=== PATIENT | female | born 1960 | race Caucasian/White ===

== ENCOUNTER 2016-12-29 15:23 | Emergency (ER) | payer OTHER ==
[2016-12-29 15:56] VITALS: BMI 37.2
[2016-12-29] MEDS ORDERED: SODIUM CHLORIDE 0.9% 1000 ML INFUS.BAG IV ONE (15:58)
[2016-12-29] MEDS ORDERED: ONDANSETRON 4 MG/2 ML VIAL IVPB ONE (16:00)
[2016-12-29] MEDS ORDERED: morphine CARPU-JECT 2 MG/1 ML DISP.SYRIN IVPUSH ONE (16:00)
[2016-12-29 16:14] LABS: URINE APPEARANCE CLEAR; URINE BILIRUBIN NEGATIVE (NEGATIVE); URINE COLOR YELLOW; URINE GLUCOSE (UA) NEGATIVE (NEGATIVE); URINE KETONE NEGATIVE (NEGATIVE); URINE NITRITE NEGATIVE (NEGATIVE); URINE PROTEIN NEGATIVE (NEGATIVE); URINE UROBILINOGEN NEGATIVE E.U./dl (0.2-1.0)
[2016-12-29] MEDS ORDERED: SODIUM CHLORIDE 1,000 ML IV SCH (16:15)
[2016-12-29 16:20] LABS: BASOPHIL 0.7 % (0-2.0); EOSINOPHIL 2.3 % (0-4.5); MEAN CELL VOLUME 87.8 fl (80-96); MEAN PLT VOLUME 8.9 fl (7.5-11.1); NEUTROPHILS 69.4 % (42.8-82.8); PLATELET COUNT 246 K/MM3 (134-434); RDW 13.9 % (11.6-15.6); WHITE BLOOD COUNT 8.5 K/mm3 (4.0-10.0)
[2016-12-29] MEDS ORDERED: morphine CARPU-JECT 2 MG/1 ML DISP.SYRIN ONE (16:21)
--- NOTE | 2016-12-29 16:21 | PDOC ---
History of Present Illness - General Chief Complaint: Pain Stated Complaint: STOMACH PAIN Time Seen by Provider: 12/29/16 15:40 History Source: Patient Exam Limitations: No Limitations - History of Present Illness Travel History: No Initial Comments: 12/29/16 15:36 Patient came for evaluation of acute onset of severe upper abdominal pain starting Friday. States middle of the day had significant cramping that she felt may be some abdominal gas. Had 4 watery mildly explosive stools no foul smell, no bright red blood, or no black tarry to them. Denies fever, denies nauseousness or vomiting at that time but pain was significant as worse to her right flank but now has since radiated around to the abdomen and epigastrium. It is spasmodic and cramping, but is worsening to now with some nausea since and chills. Has been anorexic since Friday, he denies any recent tainted food ingestion, returned from [place] last week but states has been well and they do not feel had any exposure to any infectious disease. History of diverticulitis however had a cholecystectomy a few years ago, and the suffered from gastric reflux and takes Protonix for same Timing/Duration: reports: constant, getting worse Quality: reports: moderate, severe, cramping, stabbing Abdominal Pain Onset Location: reports: RUQ, epigastric Pain Radiation: reports: flank (right) Activities at Onset: reports: none Treatment Prior to Arrive: improves with: antacids Alleviating Factors: improves with: None, Belching Past History - Travel Traveled outside of the country in the last 30 days: No Close contact w/someone who was outside of country & ill: No - Past Medical History Allergies/Adverse Reactions: Allergies Allergy/AdvReac Type Severity Reaction Status Date / Time No Known Allergies Allergy Verified 12/29/16 15:24 Home Medications: Ambulatory Orders Amlodipine Besylate [Norvasc -] 5 mg PO HS 09/02/14 Carisoprodol [Soma -] 1 tab PO HS 09/02/14 Pantoprazole Sodium [Protonix -] 40 mg PO DAILY #30 tablet.ec 09/09/14 Acetazolamide [Diamox -] 125 mg PO ASDIR 10/10/14 Bupropion HCl [Wellbutrin -] 150 mg PO BID 10/10/14 Anemia: No Asthma: No Cancer: No Cardiac Disorders: No CVA: No COPD: No CHF: No Dementia: No Diabetes: No GI Disorders: Yes (ENTERITIS) Disorders: No HTN: Yes Hypercholesterolemia: No Liver Disease: No Seizures: No Thyroid Disease: No - Surgical History Abdominal Surgery: No Appendectomy: No Cardiac Surgery: No Cholecystectomy: Yes (2010) Lung Surgery: No Neurologic Surgery: No Orthopedic Surgery: No - Psycho/Social/Smoking Cessation Hx Anxiety: No Suicidal Ideation: No Smoking History: Current every day smoker Have you smoked in the past 12 months: Yes Number of Cigarettes Smoked Daily: 20 If you are a former smoker, when did you quit?: 2004 Information on smoking cessation initiated: Yes 'Breaking Loose' booklet given: 12/29/16 Hx Alcohol Use: No Drug/Substance Use Hx: No Substance Use Type: Alcohol Hx Substance Use Treatment: No Abd/GI Specific PMHX - Complaint Specific PMHX Diverticulitis: No Gall Bladder Disease: Yes (cholecystectomy) GERD: Yes (protonix) Hepatitis: No Irritable Bowel Synd (IBS): No Pancreatitis: No Review of Systems - Review of Systems Able to Perform ROS?: Yes Is the patient limited [place] proficient: Yes Constitutional: Yes: Symptoms Reported, See HPI, Chills, Fever, Malaise, Weakness HEENTM: Yes: See HPI. No: Symptoms Reported, Nose Pain, Nose Congestion Respiratory: Yes: See HPI, Cough. No: Symptoms reported ABD/GI: Yes: Symptoms Reported, See HPI, Diarrhea, Nausea, Poor Appetite, Vomiting, Abdominal cramping. No: Rectal Bleeding, Tarry Stools : Yes: See HPI. No: Symptoms Reported, Burning, Dysuria, Discharge Musculoskeletal: Yes: Symptoms Reported, Back Pain Integumentary: Yes: Symptoms Reported Neurological: Yes: See HPI. No: Symptoms reported All Other Systems: Reviewed and Negative *Physical Exam - Vital Signs Last Vital Signs Temp Pulse Resp BP Pulse Ox 98.6 F 95 H 18 119/82 100 12/29/16 15:25 12/29/16 15:25 12/29/16 15:25 12/29/16 15:25 12/29/16 15:25 - Physical Exam General Appearance: Yes: Nourished, Appropriately Dressed, Apparent Distress HEENT: positive: CHARLES, Normal ENT Inspection, TMs Normal, Pharynx Normal Neck: positive: Supple. negative: Lymphadenopathy (R), Lymphadenopathy (L) Respiratory/Chest: positive: Lungs Clear, Normal Breath Sounds Cardiovascular: positive: Regular Rhythm Gastrointestinal/Abdominal: positive: Tender, Distended, Guarding (some mild guarding primarily in the upper quadrants and epigastrium, difficult to evaluate due to abd pain) Musculoskeletal: positive: Normal Inspection. negative: CVA Tenderness, Vertebral Tenderness Extremity: positive: Normal Capillary Refill, Normal Inspection, Normal Range of Motion. negative: Pedal Edema Integumentary: positive: Dry, Warm, Pale Neurologic: positive: standpipe tender II-XII NML intact, Fully Oriented, Alert, Normal Mood/ Affect, Normal Response, Motor Strength 12/06 ED Treatment Course - LABORATORY CBC & Chemistry Diagram: 12/29/16 16:10 12/29/16 16:10 - RADIOLOGY Radiology Studies Ordered: Category Date Time Status ABDOMEN & PELVIS CT W/WO CONTR [CT] Stat CT Scan 12/29/16 15:54 Ordered ABDOMEN FLAT & UPRIGHT [RAD] Stat Radiology 12/29/16 16:07 Ordered CHEST PA & LAT [RAD] Stat Radiology 12/29/16 16:07 Ordered - Medications Given in the ED: ED Medications Discontinued Medications Generic Name Dose Route Start Last Admin Trade Name Freq PRN Reason Stop Dose Admin Sodium Chloride 500 ml 12/29/16 15:58 12/29/16 16:15 Normal Saline - IV 12/29/16 15:59 500 ml ONCE ONE Administration Progress Note - Progress Note Progress Note: Acute onset of severe abdominal pain 3 days. We'll obtain labs, flat and upright to rule out free air, and have start oral contrast to obtain abdomen and pelvis. Providing Zofran and morphine for pain relief. IV fluids. Medical Decision Making - Medical Decision Making 12/29/16 18:47 reviewed labs with patient , c/o cont pain and will medicate with additional Morphine, TO CT scan now 12/29/16 19:00 12/29/16 19:02 to TO GIVEN TO BERNADINE Espinosa *DC/Admit/Observation/Transfer Diagnosis at time of Disposition: Abdominal pain Qualifiers: Abdominal location: right upper quadrant Qualified Code(s): R10.11 - Right upper quadrant pain - Referrals Referrals: Waldo Alexis MD [Primary Care Provider] -
[2016-12-29] MEDS ORDERED: ONDANSETRON 4 MG/2 ML VIAL ONE (16:22)
[2016-12-29 16:28] LABS: URINE BLOOD 3+ (NEGATIVE); URINE LEUK ESTERASE TRACE (NEGATIVE); URINE MUCUS RARE; URINE RBC 24 /hpf (0-3); URINE WBC 6 /hpf (3-5)
[2016-12-29 16:53] LABS: ALBUMIN 3.8 g/dl (3.4-5.0); ALK PHOS 99 U/L (45-117); ANION GAP 13 (8-16); BILIRUBIN,TOTAL 0.4 mg/dL (0.2-1.0); CALCIUM 9.1 mg/dL (8.5-10.1); CO2 23 mmol/L (21-32); COCKROFT - GAULT 107.4485; CREATININE 0.9 mg/dL (0.55-1.02); GLUCOSE,RANDOM 104 mg/dL (74-106); SGOT/AST 8 U/L (15-37); SGPT/ALT 21 U/L (12-78); TOT PROT 7.1 g/dl (6.4-8.2)
[2016-12-29] MEDS ORDERED: morphine CARPU-JECT 4 MG/1 ML DISP.SYRIN IVPUSH ONE (18:41)
[2016-12-29] MEDS ORDERED: morphine CARPU-JECT 4 MG/1 ML DISP.SYRIN ONE (18:42)
--- NOTE | 2016-12-29 21:41 | PDOC ---
*Physical Exam - Vital Signs Last Vital Signs Temp Pulse Resp BP Pulse Ox 98.6 F 64 17 123/66 96 12/29/16 15:25 12/29/16 20:28 12/29/16 20:28 12/29/16 20:28 12/29/16 20:28 ED Treatment Course - LABORATORY CBC & Chemistry Diagram: 12/29/16 16:10 12/29/16 16:10 - ADDITIONAL ORDERS Additional order review: Laboratory Results 12/29/16 12/29/16 16:10 16:02 Sodium 143 Potassium 3.9 Chloride 107 Carbon Dioxide 23 Anion Gap 13 BUN 12 D Creatinine 0.9 Creat Clearance w eGFR > 60 Random Glucose 104 Calcium 9.1 Total Bilirubin 0.4 AST 8 L ALT 21 Alkaline Phosphatase 99 D Total Protein 7.1 Albumin 3.8 Lipase 86 Urine Color Yellow Urine Appearance Clear Urine pH 5.0 Ur Specific [place] 1.015 Urine Protein Negative Urine Glucose (UA) Negative Urine Ketones Negative Urine Blood 3+ H Urine Nitrite Negative Urine Bilirubin Negative Urine Urobilinogen Negative Ur Leukocyte Esterase Trace H Urine RBC 24 Urine WBC 6 Ur Epithelial Cells Moderate Urine Mucus Rare 12/29/16 16:10 RBC 5.09 MCV 87.8 MCHC 33.0 RDW 13.9 MPV 8.9 Neutrophils % 69.4 Lymphocytes % 22.4 Monocytes % 5.2 Eosinophils % 2.3 Basophils % 0.7 - RADIOLOGY Radiology Studies Ordered: Category Date Time Status ABDOMEN & PELVIS CT WITH CONTR [CT] Stat CT Scan 12/29/16 19:33 Taken - Medications Given in the ED: ED Medications Discontinued Medications Generic Name Dose Route Start Last Admin Trade Name Anastasia PRN Reason Stop Dose Admin Morphine Sulfate 2 mg 12/29/16 16:00 12/29/16 16:30 Morphine Injection - IVPUSH 12/29/16 16:01 2 mg ONCE ONE Administration Morphine Sulfate 4 mg 12/29/16 18:41 12/29/16 18:46 Morphine Injection - IVPUSH 12/29/16 18:42 4 mg ONCE ONE Administration Ondansetron HCl 4 mg 12/29/16 16:00 12/29/16 16:30 Zofran Injection IVPB 12/29/16 16:01 4 mg ONCE ONE Administration Sodium Chloride 500 ml 12/29/16 15:58 12/29/16 16:15 Normal Saline - IV 12/29/16 15:59 500 ml ONCE ONE Administration Medical Decision Making - Medical Decision Making 12/29/16 21:37 Patient endorsed to me to follow CT scan. Patient was seen and evaluated she currently has no pain and is feeling better and would like to go home. CT scan report discussed with the patient. Will at this time given Levaquin and Flagyl in discharge home with follow-up with her GI. EKG SR rate 67, NAD, (-) ST-T wave changes Patient Name: Nazanin Shrestha THIS IS A PRELIMINARY REPORT FROM [facility] EXAM: CT abdomen and pelvis with intravenous and oral contrast IMAGES: 291 EXAM DATE AND TIME: 2016-12-29 19:43:01.0 REASON FOR EXAM: Abdominal pain COMPARISON: None. FINDINGS: The visualized lung bases are clear The gallbladder is surgically absent There is a peripherally enhancing lesion with central hypoattenuation in the right lobe of the liver measuring 1.8 cm, possibly a hemangioma There are 2 right renal cysts, the largest measuring 8.2 cm. There is mild fatty replacement of the pancreas The upper abdominal visceral organs are otherwise unremarkable Hazy increased attenuation of the central mesenteric fat with associated shotty mesenteric lymph nodes may represent mesenteric panniculitis. There is no bowel obstruction or distention The appendix is not visualized There are scattered colonic diverticula. Segmental area of thickening with pericolonic inflammatory changes involving the proximal transverse colon is compatible with acute diverticulitis. Followup to exclude underlying malignancy is suggested. No free air, free fluid or loculated collections THIS DOCUMENT HAS BEEN ELECTRONICALLY SIGNED Juan Carlos Mercado MD 2016 21:18 KEYLA Lott Please call [facility] [phone] ([phone]) with questions. 12/29/16 22:11 I discussed the physical exam findings, ancillary test results and final diagnoses with the patient. I answered all of the patient's questions. The patient was satisfied with the care received and felt comfortable with the discharge plan and treatment plan. The Patient agrees to follow up with the primary care physician within 24-72 hours. *DC/Admit/Observation/Transfer Diagnosis at time of Disposition: Diverticulitis, Panniculitis Abdominal pain Qualifiers: Abdominal location: generalized Qualified Code(s): R10.84 - Generalized abdominal pain - Discharge Dispostion Disposition: HOME Condition at time of disposition: Stable - Referrals Referrals: Waldo Alexis MD [Primary Care Provider] - - Patient Instructions Printed Discharge Instructions: DI for Diverticulitis Additional Instructions: Your Discharge Instructions: You must call primary care physician within 24 hours to arrange follow-up. Return to the Emergency Department with any new, persistent or worsening symptoms, for fever, chills, SOB, dizziness or any other concerning changes that may occur. You must follow up with GI to discuss your care. Take the antibx as prescribed - Post Discharge Activity
[2016-12-29] MEDS ORDERED: metroNIDAZOLE 250 MG TABLET PO ONE (22:10)
[2016-12-29] MEDS ORDERED: LEVOFLOXACIN 500 MG TABLET (FP) PO ONE (22:10)
[2016-12-29] MEDS ORDERED: metroNIDAZOLE 250 MG TABLET ONE (22:24)
[2016-12-29] MEDS ORDERED: LEVOFLOXACIN 500 MG TABLET (FP) ONE (22:24)
[2016-12-29] MEDS ORDERED: OXYCODONE/APAP 5/325MG COMBO TABLET PO ONE (22:30)
[2016-12-29] MEDS ORDERED: OXYCODONE/APAP 5/325MG COMBO TABLET ONE (22:37)
[2016-12-29 22:44] VITALS: BP 131/72; PULSE 67; TEMP 98.1
--- NOTE | 2016-12-30 08:27 | EKG ---
Test Reason : Blood Pressure : / mmHG Vent. Rate : 067 BPM Atrial Rate : 067 BPM P-R Int : 154 ms QRS Dur : 086 ms QT Int : 408 ms P-R-T Axes : 064 024 009 degrees QTc Int : 431 ms NORMAL SINUS RHYTHM NORMAL ECG WHEN COMPARED WITH ECG OF 06-SEP-2014 22:22, NO SIGNIFICANT CHANGE WAS FOUND Confirmed by ROGELIO ZAMROA MD ([id number]) on 12/30/2016 8:27:16 AM Referred By: Confirmed By:ROGELIO ZAMORA MD
== END 2016-12-29 22:46 | disposition home or self-care (01) ==
LOC: JER 15:23
PROC: 3E0337Z Introduction of Electrolytic and Water Balance Substance into Peripheral Vein, Percutaneous Approach (ICD-10-PCS; principal; 2016-12-29)
PROC: 3E033NZ Introduction of Analgesics, Hypnotics, Sedatives into Peripheral Vein, Percutaneous Approach (ICD-10-PCS; 2016-12-29)
PROC: 3E033GC Introduction of Other Therapeutic Substance into Peripheral Vein, Percutaneous Approach (ICD-10-PCS; 2016-12-29)
PROC: 3E0333Z Introduction of Anti-inflammatory into Peripheral Vein, Percutaneous Approach (ICD-10-PCS; 2016-12-29)
DX: K57.92 Diverticulitis of intestine, part unspecified, without perforation or abscess without bleeding (principal); M79.3 Panniculitis, unspecified; I10 Essential (primary) hypertension; F17.210 Nicotine dependence, cigarettes, uncomplicated; K21.9 Gastro-esophageal reflux disease without esophagitis
CPT/HCPCS: 36415; 71020-TC; 74020-TC; 74177-TC; 80053; 81003; 81015; 83690; 85025; 93005; 93010; 96361; 96374; 96375; 99284-25

== ENCOUNTER 2017-03-03 06:53 | Day surgery (SDC) | payer OTHER ==
[2017-03-03 07:25] VITALS: BMI 36.6
[2017-03-03] MEDS ORDERED: LIDOCAINE HCL 2% (20ML MULTI-DOSE VIAL) NR ONE (07:26)
[2017-03-03] MEDS ORDERED: PROPOFOL 20 ML ONE ×8 (07:26)
[2017-03-03] MEDS ORDERED: GLYCOPYRROLATE 0.2 MG/1 ML VIAL ONE (07:27)
[2017-03-03] MEDS ORDERED: LIDOCAINE HCL 2% 100 MG/5 ML DISP.SYRIN ONE (07:27)
[2017-03-03] MEDS ORDERED: ePHEDrine SULFATE 50 MG/1 ML AMPULE ONE (07:28)
[2017-03-03] MEDS ORDERED: ATROPINE SULFATE 1 MG/10 ML DISP.SYRIN ONE (07:28)
[2017-03-03 08:39] VITALS: TEMP 97.8
[2017-03-03 09:47] VITALS: BP 118/56; PULSE 60
--- NOTE | 2017-03-04 14:07 | PATH ---
Surgical Pathology Report Patient Name: KAREN BARKSDALE [facility]. Rec. #: [id number] /Age/Gender: 1960 (Age: 57) / F Account: [id number] Location: U-ENDOSCOPY Taken: 03/03/2017 Received: 03/03/2017 Reported: 03/04/2017 Physicians: Maninder Bates M.D. Specimen(s) Received A: BX RECTAL POLYPS B: DISTAL TRANSVERSE COLON POLYP Clinical History History of diverticulitis, abnormal CAT scan, adenoma surveillance Diverticulosis, colon polyps Final Diagnosis A. RECTUM, POLYPS, BIOPSY: MULTIPLE FRAGMENTS OF HYPERPLASTIC POLYPS. B. COLON, DISTAL TRANSVERSE, POLYP, POLYPECTOMY: CONSISTENT WITH INFLAMMATORY/POSTINFLAMMATORY-TYPE POLYP. Electronically Signed Jay Hinson M.D. Gross Description A. Received in formalin, labeled "biopsy rectal polyps" are 6 canas, irregular portions of soft tissue ranging from 0.1-0.3 cm in greatest dimension. The specimens are submitted in toto in one cassette. B. Received in formalin, labeled "distal transverse colon polyp" is a canas, irregular portion of soft tissue measuring 0.7 cm in greatest dimension. The specimen is submitted in toto in one cassette. 03/03/201703/03/2017
== END 2017-03-03 09:25 | disposition home or self-care (01) ==
LOC: JASU-ENDO 06:53
PROVIDERS: ATTEND Internal Medicine Gastroenterology
PROC: 0DBP8ZX Excision of Rectum, Via Natural or Artificial Opening Endoscopic, Diagnostic (ICD-10-PCS; 2017-03-03)
PROC: 0DBL8ZX Excision of Transverse Colon, Via Natural or Artificial Opening Endoscopic, Diagnostic (ICD-10-PCS; principal; 2017-03-03 08:00)
DX: Z12.11 Encounter for screening for malignant neoplasm of colon (principal); Z86.010 Personal history of colon polyps; K62.1 Rectal polyp; D12.3 Benign neoplasm of transverse colon; K57.30 Diverticulosis of large intestine without perforation or abscess without bleeding; K64.8 Other hemorrhoids
CPT/HCPCS: 84703; 88305-TC

== ENCOUNTER 2017-05-12 12:58 | Inpatient (IN) | payer OTHER ==
[2017-05-12 13:08] VITALS: BMI 37.2
[2017-05-12] MEDS ORDERED: SODIUM CHLORIDE 1,000 ML IV STA ×2 (13:21→17:47)
[2017-05-12] MEDS ORDERED: morphine CARPU-JECT 4 MG/1 ML DISP.SYRIN IVPUSH ONE ×2 (13:21→17:47)
[2017-05-12] MEDS ORDERED: ONDANSETRON 4 MG/2 ML VIAL IVPB ONE (13:21)
[2017-05-12] MEDS ORDERED: PANTOPRAZOLE SODIUM 40 MG in SODIUM CHLORIDE 100 ML IVPB ONE (13:21)
--- NOTE | 2017-05-12 13:26 | PDOC ---
History of Present Illness <Aniyah Love - Last Filed: 05/12/17 18:25> <Aric Coffey - Last Filed: 05/12/17 20:20> - General History Source: Patient Exam Limitations: No Limitations - History of Present Illness Travel History: No Initial Comments: 05/12/17 13:23 57 yr female with epigastric pain radiates to her back started 3 days ago getting worse with nausea and loose stool. Pt has history of diverticulitus, enteritis, states feels same to enteritis last year. Pt denies any changes in diet or foreign travel. Pt denies any sick contacts. <Maris Eastman - Last Filed: 05/13/17 22:50> - General Chief Complaint: Pain Stated Complaint: ABD PAIN Time Seen by Provider: 05/12/17 13:16 Past History <Aniyah Love - Last Filed: 05/12/17 18:25> <Aric Coffey - Last Filed: 05/12/17 20:20> - Past Medical History Anemia: No Asthma: No Cancer: No Cardiac Disorders: No CVA: No COPD: No CHF: No Dementia: No Diabetes: No GI Disorders: Yes (ENTERITIS, ADENOMA OF COLON, GERD,diverticulitis) Disorders: No HTN: Yes Hypercholesterolemia: No Liver Disease: No Seizures: No Thyroid Disease: No - Surgical History Abdominal Surgery: No Appendectomy: No Cardiac Surgery: No Cholecystectomy: Yes (2010) Lung Surgery: No Neurologic Surgery: No Orthopedic Surgery: Yes (RIGHT ROTATOR CUFF) - Suicide/Smoking/Psychosocial Hx Smoking History: Current every day smoker Have you smoked in the past 12 months: Yes Number of Cigarettes Smoked Daily: 20 If you are a former smoker, when did you quit?: 2004 Information on smoking cessation initiated: Yes 'Breaking Loose' booklet given: 05/12/17 Hx Alcohol Use: No Drug/Substance Use Hx: No Substance Use Type: Alcohol Hx Substance Use Treatment: No <Maris Eastman - Last Filed: 05/13/17 22:50> - Past Medical History Allergies/Adverse Reactions: Allergies Allergy/AdvReac Type Severity Reaction Status Date / Time No Known Allergies Allergy Verified 05/12/17 13:04 Home Medications: Ambulatory Orders Amlodipine Besylate [Norvasc -] 5 mg PO HS 09/02/14 Carisoprodol [Soma -] 1 tab PO HS 09/02/14 Pantoprazole Sodium [Protonix -] 40 mg PO DAILY #30 tablet.ec 09/09/14 Acetazolamide [Diamox -] 125 mg PO ASDIR 10/10/14 Bupropion HCl [Wellbutrin -] 300 mg PO DAILY 10/10/14 Oxycodone HCl/Acetaminophen [Percocet 10-325 mg Tablet] 1 each PO Q6H PRN #20 tablet MDD 4 tabs 05/12/17 Abd/GI Specific PMHX - Complaint Specific PMHX Diverticulitis: No Gall Bladder Disease: Yes (cholecystectomy) GERD: Yes (protonix) Hepatitis: No Irritable Bowel Synd (IBS): No Pancreatitis: No <Maris Eastman - Last Filed: 05/13/17 22:50> *Physical Exam - Vital Signs Last Vital Signs Temp Pulse Resp BP Pulse Ox 98.6 F 78 18 136/85 100 05/12/17 13:04 05/12/17 13:04 05/12/17 13:04 05/12/17 13:04 05/12/17 13:04 <Aniyah Love - Last Filed: 05/12/17 18:25> - Vital Signs Last Vital Signs Temp Pulse Resp BP Pulse Ox 98.6 F 86 18 131/74 98 05/12/17 13:04 05/12/17 18:43 05/12/17 18:43 05/12/17 18:43 05/12/17 18:43 <Aric Coffey - Last Filed: 05/12/17 20:20> - Vital Signs Last Vital Signs Temp Pulse Resp BP Pulse Ox 98.6 F 78 18 136/85 100 05/12/17 13:04 05/12/17 13:04 05/12/17 13:04 05/12/17 13:04 05/12/17 13:04 - Physical Exam General Appearance: Yes: Nourished, Appropriately Dressed HEENT: positive: EOMI, CHARLES, Normal ENT Inspection, TMs Normal, Pharynx Normal Neck: positive: Supple. negative: Tender Respiratory/Chest: positive: Lungs Clear, Normal Breath Sounds Cardiovascular: positive: Regular Rhythm, Regular Rate Gastrointestinal/Abdominal: positive: Normal Bowel Sounds, Tender (epigastric to middle of abdomen , neg lower quadrant discomfort) Musculoskeletal: positive: Normal Inspection Extremity: positive: Normal Capillary Refill, Normal Inspection, Normal Range of Motion Integumentary: positive: Normal Color, Dry, Warm Neurologic: positive: Fully Oriented, Alert, Normal Mood/Affect, Normal Response , Motor Strength 5/5 <Maris Eastman - Last Filed: 05/13/17 22:50> Heart Score/ECG Review - History History: Slightly suspicious - Age Age: 45-65 - ECG Intrepretation Rhythm: Regular Rhythm - [place]: Normal - ECG Impressions Normal ECG: Yes <Maris Eastman - Last Filed: 05/13/17 22:50> ED Treatment Course - LABORATORY CBC & Chemistry Diagram: 05/12/17 14:30 05/12/17 14:30 - ADDITIONAL ORDERS Additional order review: Laboratory Results 05/12/17 05/12/17 05/12/17 16:31 14:30 14:30 Sodium 142 Potassium 4.1 Chloride 107 Carbon Dioxide 29 D Anion Gap 6 L BUN 13 Creatinine 0.7 D Creat Clearance w eGFR > 60 Random Glucose 93 Calcium 9.0 Total Bilirubin 0.3 D AST 12 L D ALT 23 Alkaline Phosphatase 104 Creatine Kinase 106 Troponin I < 0.02 Total Protein 7.0 Albumin 3.8 Lipase 159 Urine Color Ltyellow Urine Appearance Cloudy Urine pH 6.0 Urine Protein Negative Urine Glucose (UA) Negative Urine Ketones Negative Urine Blood 3+ H Urine Nitrite Negative Urine Bilirubin Negative Urine Urobilinogen Negative Urine RBC 4 Urine WBC 3 Ur Epithelial Cells Moderate Urine Mucus Rare 05/12/17 14:30 RBC 5.05 MCV 89.1 MCHC 33.0 RDW 14.2 MPV 8.6 Neutrophils % 66.8 Lymphocytes % 25.2 Monocytes % 5.4 Eosinophils % 1.7 Basophils % 0.9 - Medications Given in the ED: ED Medications Discontinued Medications Generic Name Dose Route Start Last Admin Trade Name Freq PRN Reason Stop Dose Admin Pantoprazole Sodium 40 mg/ 100 mls @ 200 mls/hr 05/12/17 13:21 05/12/17 14:15 Sodium Chloride IVPB 05/12/17 13:50 200 mls/hr ONCE ONE Administration Sodium Chloride 1,000 mls @ 1,000 mls/hr 05/12/17 13:21 05/12/17 14:15 Normal Saline - IV 05/12/17 14:20 1,000 mls/hr ASDIR STA Administration Morphine Sulfate 4 mg 05/12/17 13:21 05/12/17 14:15 Morphine Injection - IVPUSH 05/12/17 13:22 4 mg ONCE ONE Administration Ondansetron HCl 4 mg 05/12/17 13:21 05/12/17 14:15 Zofran Injection IVPB 05/12/17 13:22 4 mg ONCE ONE Administration <Aniyah Love - Last Filed: 05/12/17 18:25> - LABORATORY CBC & Chemistry Diagram: 05/12/17 14:30 05/12/17 14:30 - ADDITIONAL ORDERS Additional order review: Laboratory Results 05/12/17 05/12/17 05/12/17 16:31 14:30 14:30 Sodium 142 Potassium 4.1 Chloride 107 Carbon Dioxide 29 D Anion Gap 6 L BUN 13 Creatinine 0.7 D Creat Clearance w eGFR > 60 Random Glucose 93 Calcium 9.0 Total Bilirubin 0.3 D AST 12 L D ALT 23 Alkaline Phosphatase 104 Creatine Kinase 106 Troponin I < 0.02 Total Protein 7.0 Albumin 3.8 Lipase 159 Urine Color Ltyellow Urine Appearance Cloudy Urine pH 6.0 Urine Protein Negative Urine Glucose (UA) Negative Urine Ketones Negative Urine Blood 3+ H Urine Nitrite Negative Urine Bilirubin Negative Urine Urobilinogen Negative Urine RBC 4 Urine WBC 3 Ur Epithelial Cells Moderate Urine Mucus Rare 05/12/17 14:30 RBC 5.05 MCV 89.1 MCHC 33.0 RDW 14.2 MPV 8.6 Neutrophils % 66.8 Lymphocytes % 25.2 Monocytes % 5.4 Eosinophils % 1.7 Basophils % 0.9 - Medications Given in the ED: ED Medications Discontinued Medications Generic Name Dose Route Start Last Admin Trade Name Freq PRN Reason Stop Dose Admin Pantoprazole Sodium 40 mg/ 100 mls @ 200 mls/hr 05/12/17 13:21 05/12/17 14:15 Sodium Chloride IVPB 05/12/17 13:50 200 mls/hr ONCE ONE Administration Sodium Chloride 1,000 mls @ 1,000 mls/hr 05/12/17 13:21 05/12/17 14:15 Normal Saline - IV 05/12/17 14:20 1,000 mls/hr ASDIR STA Administration Sodium Chloride 1,000 mls @ 1,000 mls/hr 05/12/17 17:47 05/12/17 18:25 Normal Saline - IV 05/12/17 18:46 1,000 mls/hr ASDIR STA Administration Morphine Sulfate 4 mg 05/12/17 13:21 05/12/17 14:15 Morphine Injection - IVPUSH 05/12/17 13:22 4 mg ONCE ONE Administration Morphine Sulfate 4 mg 05/12/17 17:47 05/12/17 18:23 Morphine Injection - IVPUSH 05/12/17 17:48 4 mg ONCE ONE Administration Ondansetron HCl 4 mg 05/12/17 13:21 05/12/17 14:15 Zofran Injection IVPB 05/12/17 13:22 4 mg ONCE ONE Administration Ondansetron HCl 4 mg 05/12/17 17:47 05/12/17 18:23 Zofran Injection IVPUSH 05/12/17 17:48 4 mg ONCE ONE Administration <Aric Coffey - Last Filed: 05/12/17 20:20> - LABORATORY CBC & Chemistry Diagram: 05/12/17 14:30 05/12/17 14:30 <Maris Eastman - Last Filed: 05/13/17 22:50> Medical Decision Making - Medical Decision Making 05/12/17 18:05 Dr. Arauz was paged via phone answering service at this time requesting a call back. 05/12/17 18:26 Dr. Arauz was paged a second time. <Aniyah Love - Last Filed: 05/12/17 18:25> - Medical Decision Making 05/12/17 20:20 Patient is refusing admission at this time. She states she was under the impression that the decision to admit would come after having CT-Scan. CT-Scan not revealing of any acute abdominal pathology at this time. Labs WNL. UA 3+ blood. Patient is Afebrile. She is requesting discharge with f/u appointment with Dr. Bates tomorrow. Case Discussed with Dr. Hernandez, who would like patient to stay at least for observation. He was under the impression patient was admitted already and was just consulting on case. He is not sure that Dr. Bates will have any appointments for patient to come into office tomorrow morning. This information was passed onto patient. Patient verbalized understanding of this information and is willing to sign out AMA. Patient will get Rx for pain and strict instructions to return if symptoms worsen. Patient agreed. <Aric Coffey - Last Filed: 05/12/17 20:20> - Medical Decision Making 05/12/17 13:25 cc: epigastric pain radiates to her back no chest pain no shortness of breath will get EKG< labs, pain meds IVF zofran GI Dr. Bates 05/12/17 14:34 spoke to states is covering in the hospital, will page now. labs pending, pt states pain is now radiating across her upper abdomen to the left side. 05/12/17 15:[address]. pt agrees with cat scan, however pt states she does not want to be admitted if she doesn't have to, wants to waot for CT result. 05/12/17 15:56 05/12/17 17:54 pt is continuing to have pain, will give more pain meds and IVF. pt drank the contrast and the ct is pending. pt to be admitted, pt agrees if she is still having pain 05/12/17 18:31 spoke to , pt accepted and will admit to case signed out to Fabricio [employer] at 7pm. ct pending. I have admitted pt due to continued pain, pt may decide to AMA however Fabricio will follow. 05/13/17 22:50 <Maris Eastman - Last Filed: 05/13/17 22:50> *DC/Admit/Observation/Transfer <Aniyah Love - Last Filed: 05/12/17 18:25> - Discharge Dispostion Admit: No <Aric Coffey - Last Filed: 05/12/17 20:20> - Discharge Dispostion Admit: Yes <Maris Eastman - Last Filed: 05/13/17 22:50> Diagnosis at time of Disposition: Abdominal pain Qualifiers: Abdominal location: generalized Qualified Code(s): R10.84 - Generalized abdominal pain - Discharge Dispostion Disposition: AGAINST MEDICAL ADVICE Condition at time of disposition: Stable - Prescriptions - Referrals
[2017-05-12] MEDS ORDERED: morphine CARPU-JECT 10 MG/1 ML DISP.SYRIN ONE ×2 (14:07→18:20)
[2017-05-12] MEDS ORDERED: ONDANSETRON 4 MG/2 ML VIAL ONE ×2 (14:07→18:20)
[2017-05-12] MEDS ORDERED: PANTOPRAZOLE SODIUM 40 MG VIAL ONE (14:08)
[2017-05-12 14:35] LABS: BASOPHIL 0.9 % (0-2.0); EOSINOPHIL 1.7 % (0-4.5); MCH 29.4 pg (25.7-33.7); MEAN CELL VOLUME 89.1 fl (80-96); MEAN PLT VOLUME 8.6 fl (7.5-11.1); NEUTROPHILS 66.8 % (42.8-82.8); PLATELET COUNT 235 K/MM3 (134-434); RDW 14.2 % (11.6-15.6)
[2017-05-12 15:07] LABS: ALBUMIN 3.8 g/dl (3.4-5.0); ALK PHOS 104 U/L (45-117); ANION GAP 6 (8-16); BILIRUBIN,TOTAL 0.3 mg/dL (0.2-1.0); CO2 29 mmol/L (21-32); CREATININE 0.7 mg/dL (0.55-1.02); GLUCOSE,RANDOM 93 mg/dL (74-106); SGOT/AST 12 U/L (15-37); SGPT/ALT 23 U/L (12-78)
[2017-05-12 15:08] LABS: TROPONIN I < 0.02 ng/ml (0.00-0.05)
[2017-05-12 15:14] LABS: CPK 106 IU/L (26-192)
--- NOTE | 2017-05-12 16:19 | CON.GI ---
Consult Consult Specialty:: GI: Dr. Mcdermott covering for Dr. Bates Referred by:: Dr. Waldo Alexis Reason for Consultation:: Abdominal Pain - History of Present Illness Chief Complaint: I was having pain from friday History of Present Illness: 57F admitted through [facility] ER for evaluation of abdominal pain. Ms. Shrestha describes the pain as being located in the mid upper abdomen initially, sharp in nature becoming progressively more constant and intense from this past friday. She described some nausea with a descrease in appetite today. There was no associated vomiting however she said that when she ate something it " felt like it was going right through her". To clarify her statement, she denied any tiffanie diarrhea but says that her stool was softer. She denies vomiting, quantified fevers but says she had chilkls over the weekend. She had a similar episode in 12/18 prompting an ER visit. WBC was normal and CT of the abd/pelvis revealed a ? inflammatory mass in the transverse colon through to be secondary to diverticulitis vs. mass as well as a liver lesion felt to reflect a hemangioma. There was also haziness in the mid abdomen that raised the ? of panniculitis to the radiologist. She was sent home, given antibiotics and apparently had a follow-up CT scan 01/18 that revealed improvement of the inflammatory findings. She had a follow-up colonoscopy with Dr. Bates 02/17 that revealed diverticulosis and led to the removal of an inflammatory type polyp and a hyperplastic polyp. Currently in the ER: labs are unrevealing and she was noted to be afebrile upon triage. Pain persists and she was given morphine. There was no overt rectal bleeding / melena. She denies recent change in diet, travel, sick contacts with similar complaints. - History Source History Provided By: Patient, Family Member, Medical Record Limitations to Obtaining History: No Limitations - Past Medical History EKG TECH: Yes: Other (pseudotumor cerebri) Cardio/Vascular: Yes: HTN, Other (Pseudotumor cerebri) Gastrointestinal: Yes: Diverticulitis, Diverticulosis, Hiatal Hernia (Large hiatal hernia described on upper endoscopy 09/18) - Past Surgical History Past Surgical History: Yes: Cholecystectomy (laparoscopic), - Alcohol/Substance Use Hx Alcohol Use: No History of Substance Use: reports: None - Smoking History Smoking history: Current every day smoker Have you smoked in the past 12 months: Yes Aproximately how many cigarettes per day: 20 - Social History Usual Living Arrangement: With Spouse ADL: Independent Occupation: Works as emergency department nurse book keeper Place of : [facility] History of Recent Travel: No Home Medications - Allergies Allergies/Adverse Reactions: Allergies Allergy/AdvReac Type Severity Reaction Status Date / Time No Known Allergies Allergy Verified 05/12/17 13:04 - Home Medications Home Medications: Ambulatory Orders Amlodipine Besylate [Norvasc -] 5 mg PO HS 09/02/14 Carisoprodol [Soma -] 1 tab PO HS 09/02/14 Pantoprazole Sodium [Protonix -] 40 mg PO DAILY #30 tablet.ec 09/09/14 Acetazolamide [Diamox -] 125 mg PO ASDIR 10/10/14 Bupropion HCl [Wellbutrin -] 300 mg PO DAILY 10/10/14 Family Disease History - Family Disease History Family Disease History: Diabetes: Mother (alive: 82 DM II), Sister (1, healthy) , CA: Father ( 63: melanoma), Other: Brother (1: aneurysms and valve replacement), Sister, Son (1, healthy) Other Family History: No family history of colorectal cancer or other GI malignancy Review of Systems - Review of Systems Constitutional: reports: Chills. denies: Fever Cardiovascular: denies: Chest Pain Respiratory: denies: SOB Gastrointestinal: reports: Abdominal Pain, Nausea. denies: Constipation, Diarrhea, Indigestion, Melena, Rectal Bleeding, Vomiting, Vomiting Blood Genitourinary: denies: Burning, Discharge, Dysuria, Flank Pain Musculoskeletal: denies: Back Pain Physical Exam-GI Vital Signs: Vital Signs Temperature 98.4 F 05/12/17 1600 Pulse Rate 72 05/12/17 1600 Respiratory Rate 18 05/12/17 1600 Blood Pressure 127/62 05/12/17 1600 O2 Sat by Pulse Oximetry (%) 100 05/12/17 1600 Constitutional: Yes: Calm Eyes: No: Sclera Icterus Cardiovascular: Yes: Regular Rate and Rhythm, Murmur (2/6 systolic murmur at the RSB) Respiratory: Yes: CTA Bilaterally Gastrointestinal Inspection: Yes: Scars (healed trochar scars) ...Auscultate: Yes: Normoactive Bowel Sounds ...Palpate: Yes: Soft, Tenderness (TTP RLQ and LLQ). No: Guarding, Hepatomegaly , Splenomegaly, Tenderness, Rebound ...Percussion: No: Tympanitic ...Rectal Exam: Yes: Other (No external lesions, no masses, stool guaiac negative) Edema: Yes (trace b/l LE edema) Neurological: Yes: Alert, Oriented Labs: CBC, BMP 05/12/17 14:30 05/12/17 14:30 Hepatic Panel Total Bilirubin 0.3 mg/dL (0.2-1.0) D 05/12/17 14:30 AST 12 U/L (15-37) L D 05/12/17 14:30 ALT 23 U/L (12-78) 05/12/17 14:30 Alkaline Phosphatase 104 U/L (45-117) 05/12/17 14:30 Albumin 3.8 g/dl (3.4-5.0) 05/12/17 14:30 Problem List - Problems (1) Abdominal pain Assessment/Plan: Unclear etiology at this time as the pain seems to be migratory having been predominantly in the mid/upper abdomen when it began, to now being in the LLQ and RLQ and exam performed after IV analgesia given ? recurrent of atypical diverticulitis in the transverse colon, panniculitis, appendicitis, enteritis. She does have a WBC count in normal range however she had the same in 12/18 as well when she had the inflammatory processes seen on CT imaging. Plan for now: Discussed with Maris the [employer] taking care of Ms. Shrestha in the ER: CT scan of the abdomen and pelvis with PO and IV contrast NPO for now IV hydration CRP, CBC, CMP in AM Patient will be followed Code(s): R10.9 - UNSPECIFIED ABDOMINAL PAIN Qualifiers: Abdominal location: generalized Qualified Code(s): R10.84 - Generalized abdominal pain; R10.84 - Generalized abdominal pain
[2017-05-12 16:45] LABS: URINE APPEARANCE CLOUDY; URINE BILIRUBIN NEGATIVE (NEGATIVE); URINE BLOOD 3+ (NEGATIVE); URINE COLOR LTYELLOW; URINE GLUCOSE (UA) NEGATIVE (NEGATIVE); URINE KETONE NEGATIVE (NEGATIVE); URINE NITRITE NEGATIVE (NEGATIVE); URINE PROTEIN NEGATIVE (NEGATIVE); URINE UROBILINOGEN NEGATIVE mg/dL (0.2-1.0)
[2017-05-12] MEDS ORDERED: DEXTROSE 5%-0.45% SALINE 1,000 ML IV SCH (16:45)
[2017-05-12 17:15] LABS: URINE MUCUS RARE; URINE RBC 4 /hpf (0-3); URINE WBC 3 /hpf (3-5)
[2017-05-12] MEDS ORDERED: ONDANSETRON 4 MG/2 ML VIAL IVPUSH ONE (17:47)
[2017-05-12] MEDS ORDERED: morphine CARPU-JECT 2 MG/1 ML DISP.SYRIN IVPUSH PRN (18:30)
[2017-05-12] MEDS ORDERED: ONDANSETRON 4 MG/2 ML VIAL IVPB PRN (18:30)
[2017-05-12] MEDS ORDERED: ACETAMINOPHEN 325 MG TABLET (FP) PO PRN (18:30)
[2017-05-12 20:27] LABS: URINE LEUK ESTERASE 2+ (NEGATIVE)
--- NOTE | 2017-05-12 20:27 | PDOC ---
ED Treatment Course - LABORATORY CBC & Chemistry Diagram: 05/12/17 14:30 05/12/17 14:30 - ADDITIONAL ORDERS Additional order review: Laboratory Results 05/12/17 05/12/17 05/12/17 16:31 14:30 14:30 Sodium 142 Potassium 4.1 Chloride 107 Carbon Dioxide 29 D Anion Gap 6 L BUN 13 Creatinine 0.7 D Creat Clearance w eGFR > 60 Random Glucose 93 Calcium 9.0 Total Bilirubin 0.3 D AST 12 L D ALT 23 Alkaline Phosphatase 104 Creatine Kinase 106 Troponin I < 0.02 Total Protein 7.0 Albumin 3.8 Lipase 159 Urine Color Ltyellow Urine Appearance Cloudy Urine pH 6.0 Urine Protein Negative Urine Glucose (UA) Negative Urine Ketones Negative Urine Blood 3+ H Urine Nitrite Negative Urine Bilirubin Negative Urine Urobilinogen Negative Urine RBC 4 Urine WBC 3 Ur Epithelial Cells Moderate Urine Mucus Rare 05/12/17 14:30 RBC 5.05 MCV 89.1 MCHC 33.0 RDW 14.2 MPV 8.6 Neutrophils % 66.8 Lymphocytes % 25.2 Monocytes % 5.4 Eosinophils % 1.7 Basophils % 0.9 - Medications Given in the ED: ED Medications Discontinued Medications Generic Name Dose Route Start Last Admin Trade Name Freq PRN Reason Stop Dose Admin Pantoprazole Sodium 40 mg/ 100 mls @ 200 mls/hr 05/12/17 13:21 05/12/17 14:15 Sodium Chloride IVPB 05/12/17 13:50 200 mls/hr ONCE ONE Administration Sodium Chloride 1,000 mls @ 1,000 mls/hr 05/12/17 13:21 05/12/17 14:15 Normal Saline - IV 05/12/17 14:20 1,000 mls/hr ASDIR STA Administration Sodium Chloride 1,000 mls @ 1,000 mls/hr 05/12/17 17:47 05/12/17 18:25 Normal Saline - IV 05/12/17 18:46 1,000 mls/hr ASDIR STA Administration Morphine Sulfate 4 mg 05/12/17 13:21 05/12/17 14:15 Morphine Injection - IVPUSH 05/12/17 13:22 4 mg ONCE ONE Administration Morphine Sulfate 4 mg 05/12/17 17:47 05/12/17 18:23 Morphine Injection - IVPUSH 05/12/17 17:48 4 mg ONCE ONE Administration Ondansetron HCl 4 mg 05/12/17 13:21 05/12/17 14:15 Zofran Injection IVPB 05/12/17 13:22 4 mg ONCE ONE Administration Ondansetron HCl 4 mg 05/12/17 17:47 05/12/17 18:23 Zofran Injection IVPUSH 05/12/17 17:48 4 mg ONCE ONE Administration *DC/Admit/Observation/Transfer Diagnosis at time of Disposition: Abdominal pain Qualifiers: Abdominal location: generalized Qualified Code(s): R10.84 - Generalized abdominal pain - Discharge Dispostion Disposition: AGAINST MEDICAL ADVICE Condition at time of disposition: Stable Admit: No
[2017-05-12 20:47] VITALS: BP 145/78; PULSE 63; TEMP 98.4
[2017-05-12] MEDS ORDERED: amLODIPine BESYLATE 5 MG TABLET (FP) PO SCH (22:00)
[2017-05-13] MEDS ORDERED: buPROPion HCL 75 MG TABLET PO SCH (10:00)
[2017-05-13] MEDS ORDERED: PANTOPRAZOLE 40 MG TABLET (FP) PO SCH (10:00)
--- NOTE | 2017-05-23 09:44 | EKG ---
Test Reason : Blood Pressure : / mmHG Vent. Rate : 067 BPM Atrial Rate : 067 BPM P-R Int : 136 ms QRS Dur : 090 ms QT Int : 412 ms P-R-T Axes : 046 016 006 degrees QTc Int : 435 ms NORMAL SINUS RHYTHM NORMAL ECG WHEN COMPARED WITH ECG OF 29-DEC-2016 18:19, NO SIGNIFICANT CHANGE WAS FOUND CLINICAL CORRELATION IS RECOMMENDED Confirmed by TORY HUNTER MD ([id number]) on 05/13/2017 10:37:14 PM Also confirmed by TORY HUNTER MD ([id number]), medical transcription editor NIKKI BEACH ([id number]) on 05/23/2017 9:44:31 AM Referred By: Confirmed By:TORY HUNTER MD
== END 2017-05-12 20:48 | disposition left against medical advice (07) | DRG 244 ==
LOC: JER 12:58 → JERBED 18:31
PROVIDERS: ADMIT Internal Medicine; ATTEND Internal Medicine
DX: K57.92 Diverticulitis of intestine, part unspecified, without perforation or abscess without bleeding (principal); R10.84 Generalized abdominal pain; F17.210 Nicotine dependence, cigarettes, uncomplicated; I10 Essential (primary) hypertension; Z83.3 Family history of diabetes mellitus
CPT/HCPCS: 36415; 74177-TC; 80053; 81003; 81015; 83690; 84484; 85025; 93005; 93010; 99283-25; Q9967

== ENCOUNTER 2019-05-18 06:03 | Day surgery (SDC) | payer OTHER ==
[2019-05-17 12:28] VITALS: BMI 38.0
--- NOTE | 2019-05-18 07:01 | HP ---
History & Physical Update - Physical Physical: No Change - Assessment Assessment: No Change - Plan Plan: No Change (h&p reviwed , no changes, for hysteroscopy, D&C)
[2019-05-18] MEDS ORDERED: DEXAMETHASONE SOD PHOSPHATE 4 MG/1 ML VIAL ONE (07:42)
[2019-05-18] MEDS ORDERED: PROPOFOL 20 ML ONE (07:42)
[2019-05-18] MEDS ORDERED: KETOROLAC TROMETHAMINE 30 MG/1 ML VIAL ONE (07:42)
[2019-05-18] MEDS ORDERED: MIDAZOLAM HCL 2 MG/2 ML SINGLE DOSE VIAL ONE (07:43)
[2019-05-18] MEDS ORDERED: ELECTROLYTE-148 SOLN 1,000 ML IV SCH (08:30)
[2019-05-18] MEDS ORDERED: oxyCODONE HCL 5 MG TABLET PO PRN (08:30)
[2019-05-18] MEDS ORDERED: IBUPROFEN 800 MG/8 ML IJ IVPB PRN (08:30)
[2019-05-18] MEDS ORDERED: ONDANSETRON 4 MG/2 ML VIAL IVPUSH PRN (08:30)
[2019-05-18] MEDS ORDERED: IBUPROFEN 600 MG TABLET (FP) PO PRN (08:30)
--- NOTE | 2019-05-18 08:53 | OP ---
Operative Note - Note: Operative Date: 05/18/19 Pre-Operative Diagnosis: postmenopausal bleeding, vular lesion Operation: hysteroscopt D&C, polypectomy, vulvar biopsy Findings: 2 cm EM polyp, EM atrophic, uterine adhesion Post-Operative Diagnosis: Same as Pre-op Surgeon: Az Caba Anesthesia: General Specimens Removed: EM polyp, EMC, vulvar biopsy Estimated Blood Loss (mls): 0 Operative Report Dictated: Yes
[2019-05-18] MEDS ORDERED: LACTATED RINGERS SOLUTION 1,000 ML IV SCH (09:45)
--- NOTE | 2019-05-18 10:48 | OP ---
DATE OF OPERATION: 05/18/2019 PREOPERATIVE DIAGNOSIS: Postmenopausal bleeding, vulvar lesion. POSTOPERATIVE DIAGNOSIS: Postmenopausal bleeding, vulvar lesion, endometrial polyp. PROCEDURE: Hysteroscopy, dilation and curettage, polypectomy, and vulva biopsy. SURGEON: Az Caba MD ANESTHESIA: General. ESTIMATED BLOOD LOSS: 25 mL. DESCRIPTION OF PROCEDURE: Patient was taken to operating room. Under adequate general anesthesia in dorsal lithotomy position, examination under anesthesia revealed vulvar area atrophic with whitish discoloration of the labia minor and also at the introitus area no gross lesion was seen. Vagina was atrophic. Cervix was clean. No gross lesion. The uterus was normal size. Adnexa, no masses palpable. Then with a weighted speculum in the vagina, anterior lip of the cervix was grasped with a single-tooth tenaculum. Uterine cavity was sounded to 8 cm. Cervix was slightly dilated with Hegar dilator and then hysteroscope was introduced. Visualization of endocervical canal was normal. There was a band adhesion in the mid lower uterine segment, and there was also a 2-cm endometrial polyp seen in the lower part of the uterus. Uterus itself was atrophic. Endometrium was atrophic. No other abnormalities were seen. The polyp was removed and then the adhesions were lysed with a hysteroscope and then endometrial curetting was done. Then after completion of hysteroscopy, a vulvar introitus, vaginal introitus was grasped with a pickup and then with a scalpel the small area biopsy was done and then the area was sutured with interrupted suture of 2-0 chromic. Patient tolerated the procedure well. Left the OR in good condition. Oren [id number]
[2019-05-18 11:07] VITALS: TEMP 97.5
[2019-05-18 11:10] VITALS: BP 132/78; PULSE 73
--- NOTE | 2019-05-19 17:19 | PATH ---
Surgical Pathology Report Patient Name: KAREN BARKSDALE [facility]. Rec. #: [id number] /Age/Gender: 1960 (Age: 59) / F Account: [id number] Location: [facility] SURGICAL Taken: 05/18/2019 Received: 05/18/2019 Reported: 05/19/2019 Physicians: Az Caba M.D. Specimen(s) Received A: POLYP B: ENDOMETRIAL CURETTINGS C: VULVAR BIOPSY Clinical History Postmenopausal bleeding, vulvar adhesions Final Diagnosis A. POLYP, POLYPECTOMY: ENDOMETRIAL POLYP. B. ENDOMETRIAL CURETTINGS, DILATION AND CURETTAGE: FRAGMENTS OF ENDOMETRIAL POLYP AND BENIGN CERVICAL SQUAMOUS MUCOSA. C. VULVAR, BIOPSY: GENITAL SKIN WITH THINNED EPIDERMIS, HOMOGENIZED DENSE FIBROSIS OF DERMIS, AND MILD PATCHY BAND-LIKE AND PERIVASCULAR CHRONIC INFLAMMATORY INFILTRATE CONSISTENT WITH LICHEN SCLEROSUS. Electronically Signed Nahed Pérez M.D. Gross Description A. Received in formalin, labeled "polyp" is a canas, irregular portion of soft tissue measuring 1.5 x 0.7 x 0.7 cm. in greatest dimension. The specimen is submitted bisected and entirely submitted in one cassette. B. Received in formalin labeled "endometrial curettings" are scant of pink-canas soft tissue measuring 0.5 x 0.4 x 0.2 cm. Entire specimen is submitted in one cassette. C. Received in formalin, labeled "vulvar biopsy" is a canas, irregular portion of soft tissue measuring 0.8 x 0.5 x 0.3 cm. in greatest dimension. The specimen is submitted bisected and entirely submitted in one cassette. MLSZ/05/18/2019 sanml/05/18/2019
== END 2019-05-18 11:10 | disposition home or self-care (01) ==
LOC: JASU-SURG 06:03
PROVIDERS: ATTEND Obstetrics & Gynecology
PROC: 0UB98ZX Excision of Uterus, Via Natural or Artificial Opening Endoscopic, Diagnostic (ICD-10-PCS; principal; 2019-05-18 08:00)
PROC: 0UDB8ZX Extraction of Endometrium, Via Natural or Artificial Opening Endoscopic, Diagnostic (ICD-10-PCS; 2019-05-18 08:00)
PROC: 0UBM0ZX Excision of Vulva, Open Approach, Diagnostic (ICD-10-PCS; 2019-05-18 08:00)
DX: N95.0 Postmenopausal bleeding (principal); N90.89 Other specified noninflammatory disorders of vulva and perineum; N84.0 Polyp of corpus uteri
CPT/HCPCS: 88305-TC; 94760

== ENCOUNTER → 2020-03-13 | Day surgery (SDC) | payer OTHER ==
--- NOTE | 2020-03-14 14:48 | PATH ---
Cytology Non-Gynecological Report Patient Name: KAREN BARKSDALE [facility]. Rec. #: [id number] /Age/Gender: 1960 (Age: 60) / F Account: [id number] Location: RADIOLOGY INTER Taken: 03/13/2020 Received: 03/13/2020 Reported: 03/14/2020 Physicians: Vamsi August M.D. Specimen(s) Received THYROID, RIGHT LOBE, FINE NEEDLE ASPIRATION Clinical History Right Lobe, 1.59 x 0.93 x 1.55 cm Final Diagnosis THYROID, RIGHT LOBE, FINE NEEDLE ASPIRATION: UNSATISFACTORY FOR EVALUATION. BETHESDA CLASS I: NON-DIAGNOSTIC. SCANT COLLOID IN A HEMORRHAGIC BACKGROUND PRESENT. Comment: The specimen has insufficient follicular cell clusters and/or colloid; and suboptimal for complete cytopathologic evaluation according to [employer] System for Reporting Thyroid FNA. If the nodule has worrisome ultrasound imaging properties, suggest repeat FNA, as warranted. Electronically Signed Nahed Pérez M.D. Gross Description Received are eight direct smears, four of which are air-dried and Diff-Quik stained, and four of which are alcohol fixed and Pap stained. Also received is 20 ml of bloody formalin from which one cellblock is prepared.
== END | disposition home or self-care (01) ==
LOC: JRADIR 09:45
PROVIDERS: ATTEND Otolaryngology
PROC: 0G9K3ZX Drainage of Thyroid Gland, Percutaneous Approach, Diagnostic (ICD-10-PCS; principal; 2020-03-13)
DX: E04.1 Nontoxic single thyroid nodule (principal)
CPT/HCPCS: 76942; 88173; 88305-TC

== ENCOUNTER 2022-02-08 04:53 | Day surgery (SDC) | payer OTHER ==
[2022-02-06 11:13] VITALS: BMI 29.2
[2022-02-08 09:23] VITALS: TEMP 98.1
[2022-02-08 10:34] VITALS: BP 132/72; PULSE 79
== END 2022-02-08 10:34 | disposition home or self-care (01) ==
LOC: JASU-ENDO 04:53
PROVIDERS: ATTEND Internal Medicine Gastroenterology
PROC: 0DB98ZX Excision of Duodenum, Via Natural or Artificial Opening Endoscopic, Diagnostic (ICD-10-PCS; 2022-02-08)
PROC: 0DB78ZX Excision of Stomach, Pylorus, Via Natural or Artificial Opening Endoscopic, Diagnostic (ICD-10-PCS; 2022-02-08)
PROC: 0DBL8ZX Excision of Transverse Colon, Via Natural or Artificial Opening Endoscopic, Diagnostic (ICD-10-PCS; principal; 2022-02-08 09:00)
DX: Z12.11 Encounter for screening for malignant neoplasm of colon (principal); D12.3 Benign neoplasm of transverse colon; K57.30 Diverticulosis of large intestine without perforation or abscess without bleeding; K64.8 Other hemorrhoids; K21.9 Gastro-esophageal reflux disease without esophagitis; K44.9 Diaphragmatic hernia without obstruction or gangrene; K22.2 Esophageal obstruction; K29.61 Other gastritis with bleeding; K29.80 Duodenitis without bleeding
CPT/HCPCS: 88305-TC; 88342-TC

== ENCOUNTER 2022-07-31 21:29 | Observation (INO) | payer OTHER ==
[2022-07-31 21:42] VITALS: BMI 28.7
[2022-07-31] MEDS ORDERED: PANTOPRAZOLE SODIUM 40 MG VIAL IVPB ONE (22:08)
[2022-07-31] MEDS ORDERED: PANTOPRAZOLE SODIUM 40 MG VIAL ONE (22:13)
[2022-07-31 22:43] LABS: HEMATOCRIT 45.7 % (32.4-45.2); HEMOGLOBIN 15.6 G/dL (10.7-15.3); MCH 31.4 pg (25.7-33.7); MCHC 34.2 g/dl (32.0-36.0); MEAN CELL VOLUME 91.8 fl (80-96); MEAN PLT VOLUME 8.4 fl (7.5-11.1); RBC 4.98 10^6/uL (3.60-5.2); RDW 13.5 % (11.6-15.6)
[2022-07-31] MEDS ORDERED: morphine CARPU-JECT 4 MG/1 ML DISP.SYRIN IVPUSH ONE (22:44)
[2022-07-31] MEDS ORDERED: morphine SULFATE 4 MG/ML VIAL ONE (22:47)
[2022-07-31 22:49] LABS: PLATELET ESTIMATE ADEQUATE
[2022-07-31 22:51] LABS: ALBUMIN 4.1 g/dl (3.4-5.0); BILIRUBIN,TOTAL 1.1 mg/dl (0.2-1); CALCIUM 8.2 mg/dl (8.5-10); TOT PROT 6.6 g/dl (6.4-8.2)
[2022-08-01] MEDS ORDERED: TRIMETHOBENZAMIDE HCL 200MG/2ML INJ IM PRN (01:27)
[2022-08-01] MEDS ORDERED: DOCUSATE SODIUM 100 MG CAPSULE (FP) PO PRN (01:27)
[2022-08-01 08:24] LABS: HEMATOCRIT 43.2 % (32.4-45.2); HEMOGLOBIN 14.7 G/dL (10.7-15.3); MCH 31.1 pg (25.7-33.7); MCHC 34.1 g/dl (32.0-36.0); MEAN CELL VOLUME 91.3 fl (80-96); PLATELET COUNT 230.3 10^3/uL (134-434); RBC 4.73 10^6/uL (3.60-5.2); RDW 13.9 % (11.6-15.6); WHITE BLOOD COUNT 6.4 10^3/uL (4.0-10.8)
[2022-08-01 08:37] LABS: INR 1.03 (0.83-1.09); PROTHROMBIN TIME (PATIENT) 11.8 SEC (9.7-13.0)
[2022-08-01 08:39] LABS: CALCIUM 8.7 mg/dl (8.5-10); CREATININE 0.9 mg/dl (0.55-1.3)
[2022-08-01] MEDS ORDERED: METOCLOPRAMIDE HCL INJECTION 10 MG/2 ML VIAL IVPUSH PRN (09:16)
[2022-08-01] MEDS ORDERED: LACTATED RINGERS SOLUTION 1,000 ML/1,000 ML INFUS.BAG IV SCH (09:30)
[2022-08-01] MEDS ORDERED: PANTOPRAZOLE 40 MG TABLET PO SCH (10:00)
[2022-08-01] MEDS ORDERED: SUCRALFATE 1 GM/10 ML UNIT DOSE CUPS PO SCH (10:00)
[2022-08-01] MEDS ORDERED: amLODIPine BESYLATE 5 MG TABLET (FP) PO SCH (10:00)
[2022-08-01] MEDS ORDERED: INSULIN SLIDING SCALE (NOVOLOG) 1 VIAL SQ SCH (11:00)
[2022-08-01] MEDS ORDERED: DICYCLOMINE HCL 10 MG CAPSULE PO PRN (15:53)
[2022-08-01 18:03] VITALS: RESP 17
[2022-08-01 18:04] VITALS: BP 119/65; PULSE 67; TEMP 98.5
[2022-08-02] MEDS ORDERED: acetaZOLAMIDE 250 MG TABLET PO SCH (10:00)
== END 2022-08-01 18:50 | disposition home or self-care (01) ==
LOC: FER 21:29 → FM/S 08-01 01:45
PROVIDERS: ADMIT Internal Medicine
PROC: 3E033NZ Introduction of Analgesics, Hypnotics, Sedatives into Peripheral Vein, Percutaneous Approach (ICD-10-PCS; principal; 2022-08-01)
PROC: 3E033GC Introduction of Other Therapeutic Substance into Peripheral Vein, Percutaneous Approach (ICD-10-PCS; 2022-08-01)
DX: R10.13 Epigastric pain (principal); K21.9 Gastro-esophageal reflux disease without esophagitis; F41.8 Other specified anxiety disorders; I10 Essential (primary) hypertension; E78.5 Hyperlipidemia, unspecified; K29.70 Gastritis, unspecified, without bleeding; F17.210 Nicotine dependence, cigarettes, uncomplicated
CPT/HCPCS: 0241U-QW; 36415; 71045-TC-FY; 74177-TC; 80048; 80053; 81003; 81015; 83605; 83690; 83735; 84484; 85027; 85610; 85730; 87086; 93005; 96374; 96375; 96376; 99285-25; C9803-CS; G0378; U0003; U0005